=== PATIENT | female | born 1990 | race African-American/Black ===

== ENCOUNTER 2021-07-06 19:36 | Emergency (ER) | payer MEDICAID, OTHER ==
[~2021-07-06] VITALS: Ht 165.1 cm; Wt 99.8 kg
[2021-07-07 00:01] VITALS: BP 144/101
[2021-07-07] MEDS ORDERED: KETOROLAC TROMETH 60MG/2ML VIAL IM ONE (00:45)
[2021-07-07] MEDS ORDERED: methylPREDNISolone SOD SUCC 125 MG/2 ML VL IM ONE (00:45)
== END 2021-07-07 01:23 | disposition home or self-care (01) ==
LOC: ER 19:42
DX: M54.5 Low back pain (principal); E66.9 Obesity, unspecified; Z68.36 Body mass index [BMI] 36.0-36.9, adult; M62.838 Other muscle spasm; V43.52XA Car driver injured in collision with other type car in traffic accident, initial encounter; Y93.89 Activity, other specified; Y92.410 Unspecified street and highway as the place of occurrence of the external cause; Y99.8 Other external cause status
CPT/HCPCS: 72100; 96372; 99284; J1885; J2930